=== PATIENT | female | born 1985 | race Caucasian/White ===

== ENCOUNTER 2017-01-20 09:43 | Emergency (ER) | payer BC, OTHER ==
[2017-01-20 09:57] VITALS: BP 129/84
--- NOTE | 2017-01-20 10:24 | UC ---
Throat Pain/Nasal Mendez HPI - HPI Summary HPI Summary: ST starting 3 days ago. Denies fever, vomiting, or rash. [place] a little nauseated and tired yesterday, but also stayed in the sun too long and got a sunburn. 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 Looked in her throat and saw white bump on R tonsil. - History of Current Complaint Chief Complaint: UCGeneralIllness Stated Complaint: SORE THROAT Time Seen by Provider: 01/20/17 10:06 Hx Obtained From: Patient Hx Last Menstrual Period: 01/06/17 ?: No Onset/Duration: Gradual Onset, Lasting Days Severity: Mild Cough: None Associated Signs & Symptoms: Negative: Fever, Vomiting, Rash - Allergies/Home Medications Allergies/Adverse Reactions: Allergies Allergy/AdvReac Type Severity Reaction Status Date / Time No Known Allergies Allergy Verified 01/20/17 09:57 Home Medications: Home Medications Acetaminophen [Acetaminophen Extra Stren] 1 tab PO Q4HR PRN 01/20/17 [History Confirmed 01/20/17] PMH/Surg Hx/FS Hx/Imm Hx Previously Healthy: Yes - Surgical History Surgical History: None - Family History Known Family History: Positive: Hypertension - father - Social History Alcohol Use: None Substance Use Type: None Smoking Status (MU): Heavy Every Day Tobacco Smoker Type: Cigarettes Amount Used/How Often: 1 PPD Have You Smoked in the Last Year: Yes Household Exposure Type: Cigarettes Cessation Counseling: Patient Advised to Stop Review of Systems Constitutional: Negative Skin: Negative Eyes: Negative ENT: Sore Throat Respiratory: Negative Cardiovascular: Negative Gastrointestinal: Negative Genitourinary: Negative Motor: Negative Neurovascular: Negative Musculoskeletal: Negative Neurological: Negative Psychological: Negative All Other Systems Reviewed And Are Negative: Yes Physical Exam Triage Information Reviewed: Yes Appearance: Well-Appearing, No Pain Distress, Well-Nourished Vital Signs: Initial Vital Signs Temp 99.2 F 01/20/17 09:51 Pulse 90 01/20/17 09:51 Resp 18 01/20/17 09:51 BP 129/84 01/20/17 09:51 Pulse Ox 100 01/20/17 09:51 Vital Signs Reviewed: Yes Eye Exam: Normal Eyes: Positive: Conjunctiva Clear ENT: Positive: Pharynx normal - approx 0.5cm diameter smooth, pearly papule on R tonsil. Negative: Pharyngeal erythema, Tonsillar swelling, Tonsillar exudate Dental Exam: Normal Dental: Negative: Dental Fracture @ Neck exam: Normal Neck: Positive: Supple, Nontender, No Lymphadenopathy Respiratory Exam: Normal Respiratory: Positive: Chest non-tender, Lungs clear, Normal breath sounds, No respiratory distress, No accessory muscle use Cardiovascular Exam: Normal Cardiovascular: Positive: RRR, No Murmur Musculoskeletal Exam: Normal Neurological Exam: Normal Neurological: Positive: Alert Psychological Exam: Normal Skin Exam: Other - sunburn on face and exposed skin of upper body, worst on forehead and forearms Throat Pain/Nasal Course/Dx - Differential Dx/Diagnosis Provider Diagnoses: pharyngitis, likely viral. elevated blood pressure due to disomfort Discharge - Discharge Plan Condition: Stable Disposition: HOME Patient Education Materials: Pharyngitis (ED) Referrals: [facility] REFERRAL [Outside] Additional Instructions: rapid strep negative. As we discussed, your symptoms are most likely viral and should resolve in the next week or so. If you have fever, trouble with breathing, or severe symptoms, please return here. The spot on your right tonsil should be observed over time to see if it is growing. Please follow up with a primary care provider for this. If you cannot get in with one, you can try contacting an ear, nose, and throat specialist ( there are offices in [facility] that you can call).
== END 2017-01-20 10:42 | disposition home or self-care (01) ==
LOC: UCEAST 09:43
DX: J02.9 Acute pharyngitis, unspecified (principal); R03.0 Elevated blood-pressure reading, without diagnosis of hypertension; F17.210 Nicotine dependence, cigarettes, uncomplicated
CPT/HCPCS: 87651; 99211; G0463

== ENCOUNTER 2017-05-25 18:30 | Emergency (ER) | payer BC, OTHER ==
[2017-05-25 19:02] VITALS: BP 128/85
--- NOTE | 2017-05-25 19:15 | UC ---
Throat Pain/Nasal Mendez HPI - HPI Summary HPI Summary: 31 YEAR OLD FEMALE PRESENTS WITH LESIONS IN MOUTH. - History of Current Complaint Chief Complaint: UCGeneralIllness Stated Complaint: LUMPS IN SORE THROAT Time Seen by Provider: 05/25/17 19:15 Hx Obtained From: Patient Hx Last Menstrual Period: now Onset/Duration: Sudden Onset Severity: Moderate Pain Scale Used: 0-10 Numeric - 0 Cough: Nonproductive Associated Signs & Symptoms: Positive: Negative - Allergies/Home Medications Allergies/Adverse Reactions: Allergies Allergy/AdvReac Type Severity Reaction Status Date / Time No Known Allergies Allergy Verified 05/25/17 19:02 PMH/Surg Hx/FS Hx/Imm Hx Previously Healthy: Yes - Surgical History Surgical History: None - Family History Known Family History: Positive: Hypertension - father - Social History Alcohol Use: Occasionally Substance Use Type: None Smoking Status (MU): Heavy Every Day Tobacco Smoker Type: Cigarettes Amount Used/How Often: 1 PPD Have You Smoked in the Last Year: Yes Household Exposure Type: Cigarettes Review of Systems Constitutional: Negative Skin: Negative Eyes: Negative ENT: Other - LESIONS ON THE RIGHT SIDE OF HIS MOUTH Respiratory: Negative Cardiovascular: Negative Gastrointestinal: Negative Genitourinary: Negative Motor: Negative Neurovascular: Negative Musculoskeletal: Negative Neurological: Negative Psychological: Negative All Other Systems Reviewed And Are Negative: Yes Physical Exam Triage Information Reviewed: Yes Vital Signs: Initial Vital Signs Temp 36.4 C 05/25/17 18:56 Pulse 70 05/25/17 18:56 Resp 17 05/25/17 18:56 BP 128/85 05/25/17 18:56 Pulse Ox 100 05/25/17 18:56 Vital Signs Reviewed: Yes Eye Exam: Normal ENT: Positive: Other: - LESIONS ON RIGHT SIDE OF MOUTH Dental Exam: Normal Neck exam: Normal Neck: Positive: 1 Respiratory Exam: Normal Cardiovascular Exam: Normal Abdominal Exam: Normal Musculoskeletal Exam: Normal Neurological Exam: Normal Psychological Exam: Normal Skin Exam: Normal Throat Pain/Nasal Course/Dx - Differential Dx/Diagnosis Provider Diagnoses: TONSILITHS ON RIGHT SIDE OF MOUTH Discharge - Discharge Plan Condition: Stable Disposition: HOME Patient Education Materials: Pharyngitis (ED) Forms: *Work Release Referrals: Caden Doran MD [Medical Doctor] - Caden Valdez MD [Primary Care Provider] -
== END 2017-05-25 20:17 | disposition home or self-care (01) ==
LOC: UCEAST 18:30
DX: J03.90 Acute tonsillitis, unspecified (principal); F17.210 Nicotine dependence, cigarettes, uncomplicated
CPT/HCPCS: 87070; 87651; 99211; G0463

== ENCOUNTER 2017-10-19 13:02 | Emergency (ER) | payer OTHER ==
[2017-10-19 13:56] VITALS: BP 114/75
--- NOTE | 2017-10-19 14:19 | UC ---
Ear Complaint HPI - HPI Summary HPI Summary: Pt presents with intermittent dizziness since yesterday. Worse with movement and head turning. When she rests for a few minutes the dizziness goes away and she feels better. She tells me that she also has some left ear pain and mild headache. She is most concerned about her work as she left work today due to these symptoms and is asking for a work note. She denies recent illness, sinus symptoms, sore throat, cough, SOB, chest pain, n/v/d/c, vision changes. - History of Current Complaint Chief Complaint: UCGeneralIllness Stated Complaint: DIZZY, EARACHE, HEADACHE, STOMACH ACHE Time Seen by Provider: 10/19/17 14:18 Hx Obtained From: Patient Hx Last Menstrual Period: 10/12/17 Severity Initially: Mild Severity Currently: Mild Pain Intensity: 4 Pain Scale Used: 0-10 Numeric - Allergies/Home Medications Allergies/Adverse Reactions: Allergies Allergy/AdvReac Type Severity Reaction Status Date / Time No Known Allergies Allergy Verified 10/19/17 13:49 PMH/Surg Hx/FS Hx/Imm Hx Previously Healthy: Yes - Surgical History Surgical History: None - Family History Known Family History: Positive: Hypertension - father - Social History Occupation: Employed Full-time Lives: With Family Alcohol Use: Occasionally Substance Use Type: None Smoking Status (MU): Heavy Every Day Tobacco Smoker Type: Cigarettes Amount Used/How Often: 1 PPD Have You Smoked in the Last Year: Yes Household Exposure Type: Cigarettes Review of Systems Constitutional: Negative Skin: Negative Eyes: Negative ENT: Ear Ache Respiratory: Negative Cardiovascular: Negative Gastrointestinal: Negative Neurovascular: Negative Musculoskeletal: Negative Neurological: Headache, Other - Dizziness Psychological: Negative All Other Systems Reviewed And Are Negative: Yes Physical Exam Triage Information Reviewed: Yes Appearance: Well-Appearing, No Pain Distress, Well-Nourished Vital Signs: Initial Vital Signs Temp 98.3 F 10/19/17 13:50 Pulse 66 10/19/17 13:50 Resp 16 10/19/17 13:50 BP 114/75 10/19/17 13:50 Pulse Ox 100 10/19/17 13:50 Vital Signs Reviewed: Yes Eyes: Positive: Conjunctiva Clear, Other: - EOMI. PERRLA. No nystagmus. Negative: Conjunctiva Inflamed, Discharge ENT: Positive: Hearing grossly normal, Pharynx normal, TMs normal, Uvula midline. Negative: Pharyngeal erythema, Nasal congestion, Nasal drainage, TM bulging, TM dull, TM red, Tonsillar swelling, Tonsillar exudate, Hoarse voice, Sinus tenderness Neck: Positive: Supple, Nontender, No Lymphadenopathy Respiratory: Positive: Lungs clear, Normal breath sounds, No respiratory distress, No accessory muscle use Cardiovascular: Positive: RRR, No Murmur, Pulses Normal Abdomen Description: Positive: Nontender, No Organomegaly, Soft. Negative: Distended, Guarding Bowel Sounds: Positive: Present Musculoskeletal: Positive: Strength Intact - B/L UEs and LEs, ROM Intact - B/L UEs and LEs Neurological: Positive: Alert, Other: - A&Ox3. 3 word recall, remote, recent memory, ability to follow 2-step directions, and attention intact. CN II XII grossly intact. [id number] are intact. Gait with normal base. Romberg: maintains balance, no pronator drift. Normal speech. No facial drooping. Psychological: Positive: Age Appropriate Behavior Skin: Negative: rashes Ear Complaint Course/Dx - Course Course Of Treatment: [place] hallpike maneuver reproduced dizziness. Will rx for meclizine and advise her to f/u if symptoms do not improve or if she develops new symptoms. - Differential Dx/Diagnosis Provider Diagnoses: BPPV Discharge - Discharge Plan Condition: Stable Disposition: HOME Prescriptions: Meclizine TAB* [Antivert 12.5 TAB*] 25 mg PO BID PRN #10 tab PRN Reason: Dizziness Patient Education Materials: Viral Syndrome (ED) Forms: *Work Release Referrals: No Primary Care Phys,NOPCP [Primary Care Provider] - Additional Instructions: If you develop a fever, shortness of breath, chest pain, new or worsening symptoms - please call your PCP or go to the ED.
== END 2017-10-19 14:32 | disposition home or self-care (01) ==
LOC: UCEAST 13:02
DX: H81.10 Benign paroxysmal vertigo, unspecified ear (principal); F17.210 Nicotine dependence, cigarettes, uncomplicated
CPT/HCPCS: 99212; G0463

== ENCOUNTER 2018-01-25 13:42 | Emergency (ER) | payer OTHER ==
[2018-01-25 13:54] VITALS: BP 129/84
--- NOTE | 2018-01-25 19:59 | UC ---
Jen Tillman Rebecca, scribed for Malik Majano MD on 01/25/18 at 1504 . Back Pain HPI - HPI Summary HPI Summary: Pt is a 32 y/o F who presents to [facility] c/o back pain. Pain has been present for 5-6 days and is located "next to my spine" on the right side. Currently moderate, ranked 6/10 and characterized as an ache. Reports that the pain is worse some mornings, depending on how she sleeps and that she is able to find certain positions that are less painful. Sx aggravated by movement, especially turning and stretching, alleviated slightly by Ibuprofen which helps temporarily. Denies any other symptoms including dysuria, hematuria, fever, chills, abd pain, neck pain, and LE pain/weakness. Works in a warehouse, doing significantly bending and stretching. Negative PMHx kidney stones and back problems, and no PSHx. - History of Current Complaint Chief Complaint: UCBackPain Stated Complaint: BACK PAIN Time Seen by Provider: 01/25/18 14:55 Hx Obtained From: Patient Hx Last Menstrual Period: 10/12/17 Onset/Duration: Lasting Days - 5-6 days, Still Present Severity Currently: Moderate Pain Intensity: 6 Pain Scale Used: 0-10 Numeric Back Pain: Is Discrete @ - To the right side of the spine Character: Aching Aggravating Factor(s): Movement - Stretching and turning Alleviating Factor(s): OTC Meds - Ibuprofen - slightly/temporarily Associated Signs And Symptoms: Positive: Negative. Negative: Fever, Abdominal Pain - Allergies/Home Medications Allergies/Adverse Reactions: Allergies Allergy/AdvReac Type Severity Reaction Status Date / Time No Known Allergies Allergy Verified 01/25/18 13:55 Home Medications: Home Medications Ibuprofen [Goodsense Ibuprofen] 600 mg PO 01/25/18 [History] Norgestimate-Ethinyl Estradiol [Ortho-Cyclen 28 Tablet] 1 tab 01/25/18 [History] PMH/Surg Hx/FS Hx/Imm Hx - Additional Past Medical History Additional PMH: NEGATIVE PMHx: kidney stones, back problems, HTN, DM, asthma - Surgical History Surgical History: None - Family History Known Family History: Positive: Hypertension - father - Social History Alcohol Use: Rare Substance Use Type: None Smoking Status (MU): Heavy Every Day Tobacco Smoker Type: Cigarettes Amount Used/How Often: 1 PPD Have You Smoked in the Last Year: Yes Household Exposure Type: Cigarettes Review of Systems Constitutional: Negative Skin: Negative Eyes: Negative ENT: Negative Respiratory: Negative Cardiovascular: Negative Gastrointestinal: Negative Genitourinary: Negative Motor: Negative Neurovascular: Negative Musculoskeletal: Other: - Right-sided back pain Neurological: Negative Psychological: Negative All Other Systems Reviewed And Are Negative: Yes - Comments Additional Review of Systems Comments: NEGATIVE: Dysuria, hematuria, fever, chills, abd pain, neck pain, and LE pain/ weakness Physical Exam - Summary Physical Exam Summary: General: well-appearing, no pain distress Skin: warm, color reflects adequate perfusion, dry Head: normal Eyes: EOMI, REA ENT: normal Neck: supple, nontender Respiratory: CTA, breath sounds present Cardiovascular: RRR Abdomen: soft, nontender Bowel: present Musculoskeletal: strength/ROM intact, tender in the right paraspinous lumbar muscles Neurological: sensory/motor intact, A&O x3 Psychological: affect/mood appropriate Triage Information Reviewed: Yes Vital Signs: Initial Vital Signs Temp 98.2 F 01/25/18 13:51 Pulse 72 01/25/18 13:51 Resp 18 01/25/18 13:51 BP 129/84 01/25/18 13:51 Pulse Ox 99 01/25/18 13:51 Vital Signs Reviewed: Yes Back Pain Course/Dx - Differential Dx/Diagnosis Provider Diagnoses: LOW BACK PAIN Discharge - Sign-Out/Discharge Documenting (check all that apply): Discharge/Admit/Transfer - Discharge - Discharge Plan Condition: Stable Disposition: HOME Prescriptions: Cyclobenzaprine TAB* [Flexeril 10 MG TAB*] 10 mg PO TID PRN #15 tab MDD 3 PRN Reason: Pain Patient Education Materials: Low Back Strain (ED), Acute Low Back Pain (ED), Core Strengthening Exercises (GEN) Forms: *Work Release Referrals: [facility] [place] [facility] [Outside] - Billing Disposition and Condition Condition: STABLE Disposition: HOME The documentation as recorded by the Jen motley Rebecca accurately reflects the service I personally performed and the decisions made by me, Malik Majano MD.
== END 2018-01-25 15:28 | disposition home or self-care (01) ==
LOC: UCEAST 13:42
DX: M54.5 Low back pain (principal); F17.210 Nicotine dependence, cigarettes, uncomplicated
CPT/HCPCS: 99212; G0463

== ENCOUNTER 2018-04-18 09:14 | Emergency (ER) | payer OTHER ==
[2018-04-18 09:23] VITALS: BP 115/73
--- NOTE | 2018-04-18 09:52 | UC ---
Skin Complaint HPI - HPI Summary HPI Summary: 32 yo female presents with bug bites. She tells me that 2 days ago she [place] The next day noticed bug bites to her right shoulder that are itchy. This morning woke up and noticed more on her shoulder, but also some on her left side and upper legs. Her partner also has some, but not as much as her. She was outside a lot, but denies being in contact with any plant life. Denies fever or chills. Has not applied any creams. - History of Current Complaint Chief Complaint: UCSkin Time Seen by Provider: 04/18/18 09:52 Stated Complaint: RASH Hx Obtained From: Patient Hx Last Menstrual Period: 03/19/18 Onset/Duration: Sudden Onset Current Severity: None Pain Intensity: 0 - Allergy/Home Medications Allergies/Adverse Reactions: Allergies Allergy/AdvReac Type Severity Reaction Status Date / Time No Known Allergies Allergy Verified 04/18/18 09:23 Review of Systems Constitutional: Negative Skin: Other - Bug bites Respiratory: Negative Cardiovascular: Negative Neurovascular: Negative Neurological: Negative Psychological: Negative All Other Systems Reviewed And Are Negative: Yes PMH/Surg Hx/FS Hx/Imm Hx - Additional Past Medical History Additional PMH: None Previously Healthy: Yes - Surgical History Surgical History: None - Family History Known Family History: Positive: Hypertension - father - Social History Occupation: Employed Full-time Lives: With Family Alcohol Use: Rare Substance Use Type: None Smoking Status (MU): Heavy Every Day Tobacco Smoker Type: Cigarettes Amount Used/How Often: 1 PPD Have You Smoked in the Last Year: Yes Household Exposure Type: Cigarettes Physical Exam - Summary Physical Exam Summary: GENERAL: NAD. WDWN. No pain distress. SKIN: Scattered 2-3mm mildly erythematous and raised bug bites to right shoulder , left side, and upper legs. No streaking, bleeding, or drainage. NECK: Supple. Nontender. No lymphadenopathy. CHEST: No accessory muscle use. Breathing comfortably and in no distress. CV: Pulses intact NEURO: Alert. CN II-XII grossly intact. PSYCH: Age appropriate behavior. Triage Information Reviewed: Yes Vital Signs: Initial Vital Signs Temp 97.7 F 04/18/18 09:19 Pulse 60 04/18/18 09:19 Resp 16 04/18/18 09:19 BP 115/73 04/18/18 09:19 Pulse Ox 100 04/18/18 09:19 Vital Signs Reviewed: Yes Course/Dx - Course Course Of Treatment: Suspect bed bugs - Diagnoses Provider Diagnoses: Bed bugs Discharge - Sign-Out/Discharge Documenting (check all that apply): Patient Departure - Discharge Plan Condition: Stable Disposition: HOME Prescriptions: Hydrocortisone 1% CREAM* [Hytone Cream 1%*] 1 applic TOPICAL BID #1 tube Patient Education Materials: Bed Bugs (ED) Forms: *Work Release Referrals: No Primary Care Phys,NOPCP [Primary Care Provider] - Additional Instructions: If you develop a fever, shortness of breath, chest pain, new or worsening symptoms - please call your PCP or go to the ED. - Billing Disposition and Condition Condition: STABLE Disposition: Home
== END 2018-04-18 10:34 | disposition home or self-care (01) ==
LOC: UCEAST 09:14
DX: S40.261A Insect bite (nonvenomous) of right shoulder, initial encounter (principal); S70.362A Insect bite (nonvenomous), left thigh, initial encounter; S70.361A Insect bite (nonvenomous), right thigh, initial encounter; W57.XXXA Bitten or stung by nonvenomous insect and other nonvenomous arthropods, initial encounter; Y93.9 Activity, unspecified; Y92.009 Unspecified place in unspecified non-institutional (private) residence as the place of occurrence of the external cause; F17.210 Nicotine dependence, cigarettes, uncomplicated
CPT/HCPCS: 99212; G0463

== ENCOUNTER 2018-04-24 14:42 | Emergency (ER) | payer SELFPAY ==
[2018-04-24 14:54] VITALS: BP 142/92
--- NOTE | 2018-04-24 16:38 | UC ---
Lower Extremity/Ankle HPI - HPI Summary HPI Summary: The patient is a 32 y/o F presenting to [facility] c/o pain in the left ankle and foot s/p falling off of a pallet at work today at 1020. She was standing on a 4- foot pallet while carrying a bag of bananas when she fell. She isn't sure how she fell, but she is now experiencing pain in her left foot and ankle which is rated 9/10 in severity. She presented to in a wheelchair today because she has limited ROM in the ankle, and standing, ambulation, and movement worsens the pain. She denies hitting her head and neck, LOC. - History of Current Complaint Chief Complaint: UCLowerExtremity Stated Complaint: ANKLE INJURY Time Seen by Provider: 04/24/18 16:27 Hx Obtained From: Patient Hx Last Menstrual Period: 3 wks ago Onset/Duration: Sudden Onset, Lasting Hours, Still Present Severity Initially: Severe Severity Currently: Severe Pain Intensity: 9 Pain Scale Used: 0-10 Numeric Aggravating Factor(s): Standing, Ambulation, Other - movement Alleviating Factor(s): Rest Able to Bear Weight: No - presents to in wheelchair Feet (Multiple View): 1 - pain in left ankle and foot - Allergies/Home Medications Allergies/Adverse Reactions: Allergies Allergy/AdvReac Type Severity Reaction Status Date / Time No Known Allergies Allergy Verified 04/24/18 14:54 PMH/Surg Hx/FS Hx/Imm Hx Other Endocrine History: NEGATIVE: diabetes, HLD Other Cardiovascular History: NEGATIVE: HTN Other Respiratory History: NEGATIVE: asthma - Surgical History Surgical History: None - Family History Known Family History: Positive: Hypertension - father - Social History Alcohol Use: Rare Substance Use Type: None Smoking Status (MU): Heavy Every Day Tobacco Smoker Type: Cigarettes Amount Used/How Often: 1 PPD Have You Smoked in the Last Year: Yes Household Exposure Type: Cigarettes Review of Systems Musculoskeletal: Other: - POSITIVE: pain in left ankle and foot; NEGATIVE: pain in head or neck Neurological: Other All Other Systems Reviewed And Are Negative: Yes Physical Exam - Summary Physical Exam Summary: VITAL SIGNS: Reviewed. GENERAL: Patient is a well-developed and nourished female who is lying comfortable in the stretcher. Patient is not in any acute respiratory distress. HEAD AND FACE: Normocephalic EYES: PERRLA, EOMI x 2. EARS: Hearing grossly intact. MOUTH: Oropharynx within normal limits. NECK: Supple, trachea is midline, no adenopathy, no JVD, no carotid bruit. CHEST: Symmetric, no tenderness at palpation LUNGS: Clear to auscultation bilaterally. No wheezing or crackles. CVS: Regular rate and rhythm, S1 and S2 present, no murmurs or gallops appreciated. ABDOMEN: Soft, non-tender. Bowel sounds are normal. No abdominal abnormal pulsations. EXTREMITIES: Full ROM in all major joints with limited ROM in the left ankle and foot, no edema, no cyanosis or clubbing, no ecchymosis, no hematoma, good pulses, good neurovascular exam, intact. NEURO: Alert and oriented x 3. No acute neurological deficits. Speech is normal and follows commands. SKIN: Dry and warm. Triage Information Reviewed: Yes Vital Signs: Initial Vital Signs Temp 97.6 F 04/24/18 14:51 Pulse 84 04/24/18 14:51 Resp 18 04/24/18 14:51 BP 142/92 04/24/18 14:51 Pulse Ox 100 04/24/18 14:51 Vital Signs Reviewed: Yes Diagnostics - Radiology Foot XR Xray Interpretation: No Acute Changes - No fracture of the left foot is noted. [facility] physician has reviewed this report. Radiology Interpretation Completed By: Radiologist Left Ankle XR Xray Interpretation: No Acute Changes - No fracture of the left ankle is noted. [facility] physician has reviewed this report. Radiology Interpretation Completed By: Radiologist Lower Extremity Course/Dx - Course Course Of Treatment: The patient was found to have increased BP in UC. The patient will follow up with PCP for better control of BP. . Patient is a 32-year-old female presents to the urgent care with a chief complaint of left ankle and foot pain. X-rays of the left ankle and left foot impressions by radiologist reveal no acute fracture or dislocation. Patient was placed in the gel ankle brace. Patient will be discharged home with follow-up with PCP. Patient instructed to return to the urgent if she develops any worsening symptoms. She was given an excuse for work. - Differential Dx/Diagnosis Provider Diagnoses: Ankle sprain Discharge - Sign-Out/Discharge Documenting (check all that apply): Patient Departure - Patient will be discharged home. All imaging exams completed and their final reports reviewed: Yes - Discharge Plan Condition: Stable Disposition: HOME Prescriptions: Naproxen [Naproxen 500 mg tab] 500 mg PO BID PRN #20 tablet PRN Reason: Pain Patient Education Materials: Ankle Sprain (ED) Forms: *Work Release Referrals: [facility] [place] [facility] REFERRAL [Outside] - 3 Days Additional Instructions: FOLLOW UP WITH YOUR PRIMARY CARE PROVIDER WITHIN ONE WEEK FOR HIGH BLOOD PRESSURE NOTED TODAY. RETURN TO URGENT CARE OR THE EMERGENCY DEPARTMENT FOR ANY WORSENING OR NEW SYMPTOMS. Take medications as instructed and adhere to plan Take Acetaminophen or ibuprofen for pain or fever Increase your fluid intake Return to the UC or go to the emergency department if symptoms worsen Follow-up with primary care physician in next 2-3 days - Billing Disposition and Condition Condition: STABLE Disposition: Home - Attestation Statements Document Initiated by Ryan: Yes Documenting Scribe: Sara Salinas Provider For Whom Ryan is Documenting (Include Credential): Huy Adams MD Scribe Attestation: Sara Tillman scribed for Huy Adams MD on 04/26/18 at 0734. Scribe Documentation Reviewed: Yes Provider Attestation: The documentation as recorded by the Sara motley accurately reflects the service I personally performed and the decisions made by me, Huy Adams MD
--- NOTE | 2018-04-24 16:55 | RAD ---
Indication: Left ankle pain. 3 views of left ankle demonstrates no fracture. No other bone or joint abnormality is noted. IMPRESSION: No fracture of the left ankle is noted.
--- NOTE | 2018-04-24 16:56 | RAD ---
Indication: Left foot pain. 3 views of left foot demonstrates no fracture. No other bone or joint abnormality is identified. IMPRESSION: No fracture of the left foot is noted.
[2018-04-24] MEDS ORDERED: Ibuprofen TAB* 400 MG PO ONE (16:59)
--- NOTE | 2018-04-25 10:59 | UC ---
- Progress Note Progress Note: Patient Name: MICHAEL MCINTYRE Medical Record#: [id number] Ordering Physician: Qing ZAMORA Acct.#: [id number] : 1985 Age: 32 Sex: F Location: [facility] Exam Date: 04/24/18 1452 ADM Status: REG ER Order Information: FOOT LEFT 3+ VWS Accession Number: [id number] CPT: 07026 Indication: Left foot pain. 3 views of left foot demonstrates no fracture. No other bone or joint abnormality is identified. IMPRESSION: No fracture of the left foot is noted. <Electronically signed by Kateryna Gunn MD in OV> 04/24/181652 Dictated By: Kateryna Gunn MD Dictated Date/Time: 04/24/181652 Transcribed Date/Time: 04/24/181651 Copy to: CC:Qing ZAMORA; No Primary Care Phys,NOPCP; Huy Adams MD Imaging - [facility] Imaging [facility] [place] [address] [address] ph [phone]) ph ([phone]) ph ([phone]) This report is only to be considered final once signed by the Provider(s) as displayed in the "<Electronically Signed by >" field (s). Absence of a signature indicates the report is in a draft status and still needs to be finalized. In the event this document was created by someone other than the signing Provider, the individual initiating the document will be listed in the "Entered by:" or "Dictated by:" mendosa. 1 of 1 Patient Name: MICHAEL MCINTYRE Medical Record#: [id number] Ordering Physician: Qing ZAMORA Acct.#: [id number] : 1985 Age: 32 Sex: F Location: [facility] Exam Date: 04/24/18 1451 ADM Status: REG ER Order Information: ANKLE LEFT 3+VWS Accession Number: [id number] CPT: 81461 Indication: Left ankle pain. 3 views of left ankle demonstrates no fracture. No other bone or joint abnormality is noted. IMPRESSION: No fracture of the left ankle is noted. <Electronically signed by Kateryna Gunn MD in OV> 04/24/181651 Dictated By: Kateryna Gunn MD Dictated Date/Time: 04/24/181651 Transcribed Date/Time: 04/24/181651 Copy to: CC:Qing ZAMORA; No Primary Care Phys,NOPCP; Huy Adams MD [facility] - [facility] [address] [address] ph ([phone]) ph ([phone]) ph ([phone]) This report is only to be considered final once signed by the Provider(s) as displayed in the "<Electronically Signed by >" field (s). Absence of a signature indicates the report is in a draft status and still needs to be finalized. In the event this document was created by someone other than the signing Provider, the individual initiating the document will be listed in the "Entered by:" or "Dictated by:" mendosa. 1 of 1 Discharge - Sign-Out/Discharge Documenting (check all that apply): Post-Discharge Follow Up All imaging exams completed and their final reports reviewed: Yes - Discharge Plan Condition: Stable Disposition: HOME Prescriptions: Naproxen [Naproxen 500 mg tab] 500 mg PO BID PRN #20 tablet PRN Reason: Pain Patient Education Materials: Ankle Sprain (ED) Forms: *Work Release Referrals: [facility]IAN REFERRAL [Outside] - 3 Days Additional Instructions: FOLLOW UP WITH YOUR PRIMARY CARE PROVIDER WITHIN ONE WEEK FOR HIGH BLOOD PRESSURE NOTED TODAY. RETURN TO URGENT CARE OR THE EMERGENCY DEPARTMENT FOR ANY WORSENING OR NEW SYMPTOMS. Take medications as instructed and adhere to plan Take Acetaminophen or ibuprofen for pain or fever Increase your fluid intake Return to the or go to the emergency department if symptoms worsen Follow-up with primary care physician in next 2-3 days - Billing Disposition and Condition Condition: STABLE Disposition: Home
== END 2018-04-24 17:05 | disposition home or self-care (01) ==
LOC: UCEAST 14:42
DX: S93.402A Sprain of unspecified ligament of left ankle, initial encounter (principal); W17.89XA Other fall from one level to another, initial encounter; Y93.9 Activity, unspecified; Y92.89 Other specified places as the place of occurrence of the external cause; Y99.0 Civilian activity done for income or pay; F17.210 Nicotine dependence, cigarettes, uncomplicated
CPT/HCPCS: 99213; A9270-GY; G0463

== ENCOUNTER 2019-04-18 21:23 | Emergency (ER) | payer OTHER ==
[2019-04-18 21:40] VITALS: BP 140/73
--- NOTE | 2019-04-18 21:40 | UC ---
Lower Extremity/Ankle HPI - HPI Summary HPI Summary: Patient was running to a base, felt a pop and has had pain in the under side of the lateral foot, this pain has been presnet for about a month onlg the latereal side of the ankle and foot, but since her softball game today it is worse. no swelling noted, no bruising, patient was brought in via wheelchair - History of Current Complaint Stated Complaint: RIGHT ANKLEL INJURY Time Seen by Provider: 04/18/19 21:33 Hx Obtained From: Patient Hx Last Menstrual Period: 3 wks ago ?: No Onset/Duration: Sudden Onset, Lasting Hours Severity Initially: Moderate Severity Currently: Moderate Aggravating Factor(s): Standing, Ambulation Alleviating Factor(s): Rest Able to Bear Weight: No - Allergies/Home Medications Allergies/Adverse Reactions: Allergies Allergy/AdvReac Type Severity Reaction Status Date / Time No Known Allergies Allergy Verified 04/18/19 21:40 Home Medications: Home Medications Norgestimate-Ethinyl Estradiol [Sprintec 28 Day Tablet] 1 each PO DAILY [History Confirmed 04/18/19] PMH/Surg Hx/FS Hx/Imm Hx Previously Healthy: Yes - Surgical History Surgical History: None - Family History Known Family History: Positive: Hypertension - father - Social History Alcohol Use: Rare Substance Use Type: None Smoking Status (MU): Heavy Every Day Tobacco Smoker Type: Cigarettes Amount Used/How Often: 1 PPD Have You Smoked in the Last Year: Yes Household Exposure Type: Cigarettes Review of Systems All Other Systems Reviewed And Are Negative: Yes Musculoskeletal: Positive: Arthralgia, Decreased ROM, Myalgia Is Patient Immunocompromised?: No Physical Exam Triage Information Reviewed: Yes Appearance: Well-Appearing, Pain Distress, Obese Vital Signs Reviewed: Yes Eye Exam: Normal ENT Exam: Normal Dental Exam: Normal Neck exam: Normal Respiratory Exam: Normal Respiratory: Positive: Chest non-tender, Lungs clear, Normal breath sounds Cardiovascular Exam: Normal Cardiovascular: Positive: RRR, No Murmur Abdominal Exam: Normal Musculoskeletal: Positive: No Edema, Strength Limited @ - cannot bear wieght, ROM Limited @ - with eversion and Plantar and dorsi flexion Neurological Exam: Normal Psychological Exam: Normal Skin Exam: Normal Lower Extremity Course/Dx - Course Course Of Treatment: hx obtained, exam performed ,meds reviewed, xray obtained and is negative, crutches and education on care given. - Differential Dx/Diagnosis Differential Diagnosis/HQI/PQRI: Contusion, Fracture (Closed), Sprain, Strain Provider Diagnosis: Peroneal tendinitis, right leg Discharge - Sign-Out/Discharge Documenting (check all that apply): Patient Departure All imaging exams completed and their final reports reviewed: No Studies - Discharge Plan Condition: Stable Disposition: HOME Patient Education Materials: Tendinitis (ED) Referrals: No Primary Care Phys,NOPCP [Primary Care Provider] - Additional Instructions: 1. Use the crutches to rest the foot for the next 48 hours 2. Take ibuprofen 400- 600 mg every 4-6 hours for the next w days 3. warm water baths for the foot and ankle 2 times a day 4. elevate at rest 5. Start gentle stretching of the lower leg and work back into activity 6. if not improving in the next week follow up with orthopedics for further evaluation - Billing Disposition and Condition Condition: STABLE Disposition: Home
--- NOTE | 2019-04-18 22:14 | UC ---
Course/Dx - Diagnoses Provider Diagnoses: Peroneal tendinitis, right leg Discharge - Sign-Out/Discharge Documenting (check all that apply): Patient Departure All imaging exams completed and their final reports reviewed: No - Discharge Plan Condition: Stable Disposition: HOME Patient Education Materials: Tendinitis (ED) Forms: *Work Release Referrals: No Primary Care Phys,NOPCP [Primary Care Provider] - Additional Instructions: 1. Use the crutches to rest the foot for the next 48 hours 2. Take ibuprofen 400- 600 mg every 4-6 hours for the next w days 3. warm water baths for the foot and ankle 2 times a day 4. elevate at rest 5. Start gentle stretching of the lower leg and work back into activity 6. if not improving in the next week follow up with orthopedics for further evaluation - Billing Disposition and Condition Condition: STABLE Disposition: Home
--- NOTE | 2019-04-19 07:55 | UC ---
- Progress Note Progress Note: Confirmed that not fracture or signficant findings on xray. No changes indicated. Course/Dx - Diagnoses Provider Diagnoses: Peroneal tendinitis, right leg Discharge - Sign-Out/Discharge Documenting (check all that apply): Patient Departure All imaging exams completed and their final reports reviewed: Yes - Discharge Plan Condition: Stable Disposition: HOME Patient Education Materials: Tendinitis (ED) Forms: *Work Release Referrals: No Primary Care Phys,NOPCP [Primary Care Provider] - Additional Instructions: 1. Use the crutches to rest the foot for the next 48 hours 2. Take ibuprofen 400- 600 mg every 4-6 hours for the next w days 3. warm water baths for the foot and ankle 2 times a day 4. elevate at rest 5. Start gentle stretching of the lower leg and work back into activity 6. if not improving in the next week follow up with orthopedics for further evaluation - Billing Disposition and Condition Condition: STABLE Disposition: Home
== END 2019-04-18 22:01 | disposition home or self-care (01) ==
LOC: UCCORT 21:23
DX: M76.71 Peroneal tendinitis, right leg (principal); F17.210 Nicotine dependence, cigarettes, uncomplicated
CPT/HCPCS: 99212; G0463

== ENCOUNTER 2019-07-08 12:58 | Emergency (ER) | payer OTHER ==
[2019-07-08 13:16] VITALS: BP 142/87
--- NOTE | 2019-07-08 13:25 | UC ---
Throat Pain/Nasal Mendez HPI - HPI Summary HPI Summary: left lower gum pain and swelling x 2-3 days no fever has to have no chew foods due to pain - History of Current Complaint Chief Complaint: UCRespiratory Stated Complaint: SORE THROAT Time Seen by Provider: 07/08/19 13:19 Hx Obtained From: Patient Hx Last Menstrual Period: 3 weeks ago Onset/Duration: Sudden Onset Severity: Mild Pain Intensity: 4 Pain Scale Used: 0-10 Numeric Cough: None Associated Signs & Symptoms: Positive: Fever - Epiglottits Risk Factors Epiglottis Risk Factors: Negative - Allergies/Home Medications Allergies/Adverse Reactions: Allergies Allergy/AdvReac Type Severity Reaction Status Date / Time No Known Allergies Allergy Verified 07/08/19 13:16 PMH/Surg Hx/FS Hx/Imm Hx Previously Healthy: Yes - Surgical History Surgical History: None - Family History Known Family History: Positive: Hypertension - father, Non-Contributory - Social History Alcohol Use: None Substance Use Type: None Smoking Status (MU): Current Every Day Smoker Type: Cigarettes Amount Used/How Often: 1 PPD Have You Smoked in the Last Year: Yes Household Exposure Type: Cigarettes Review of Systems All Other Systems Reviewed And Are Negative: Yes Constitutional: Positive: Negative Skin: Positive: Negative Eyes: Positive: Negative ENT: Positive: Dental Pain Respiratory: Positive: Negative Cardiovascular: Positive: Negative Gastrointestinal: Positive: Negative Genitourinary: Positive: Negative Motor: Positive: Negative Neurovascular: Positive: Negative Musculoskeletal: Positive: Negative Neurological: Positive: Negative Psychological: Positive: Negative Physical Exam Triage Information Reviewed: Yes Appearance: Well-Appearing, No Pain Distress, Well-Nourished Vital Signs: Initial Vital Signs Temp 97.8 F 07/08/19 13:13 Pulse 71 07/08/19 13:13 Resp 16 07/08/19 13:13 BP 142/87 07/08/19 13:13 Pulse Ox 100 07/08/19 13:13 Vital Signs Reviewed: Yes Eyes: Positive: Conjunctiva Clear ENT: Positive: Hearing grossly normal, Uvula midline. Negative: Nasal congestion, Nasal drainage, Tonsillar swelling, Tonsillar exudate Dental Exam: Other - see image Neck: Positive: Supple, Nontender, No Lymphadenopathy Respiratory: Positive: Lungs clear, Normal breath sounds, No respiratory distress Cardiovascular: Positive: RRR, No Murmur Musculoskeletal: Positive: ROM Intact, No Edema Neurological: Positive: Alert Psychological Exam: Normal Skin Exam: Normal Images Dental: 1 - gum red and inflamed with debris under it Throat Pain/Nasal Course/Dx - Differential Dx/Diagnosis Provider Diagnosis: Acute pericoronitis Discharge ED - Sign-Out/Discharge Documenting (check all that apply): Patient Departure All imaging exams completed and their final reports reviewed: No Studies - Discharge Plan Condition: Stable Disposition: HOME Prescriptions: Penicillin VK 500 MG TAB(NF) [Penicillin VK 500 mg Tab] 500 mg PO QID #28 tab Patient Education Materials: Toothache (ED) Referrals: No Primary Care Phys,NOPCP [Primary Care Provider] - [facility] PHYS[facility]IAN REFERRAL [Outside] - 2 Weeks (BP a little elevated here. Needs rechecking in 1-4 mos) Additional Instructions: warm salt water gargles 4x day advil or aleve the gum overlying your left lower molar is overgrown/inflamed and infected See a dentist this week advil or aleve - Billing Disposition and Condition Condition: STABLE Disposition: Home
== END 2019-07-08 13:30 | disposition home or self-care (01) ==
LOC: UCEAST 12:58
DX: K05.20 Aggressive periodontitis, unspecified (principal); F17.210 Nicotine dependence, cigarettes, uncomplicated
CPT/HCPCS: 99212; G0463

== ENCOUNTER 2019-08-15 07:04 | Emergency (ER) | payer OTHER ==
[2019-08-15 07:19] VITALS: BP 121/78
--- NOTE | 2019-08-15 07:26 | UC ---
Complaint Female HPI - HPI Summary HPI Summary: dysuria x 2 days + frequency , urgency , denies any hematuria no fever, no chill, no flank pain - History Of Current Complaint Chief Complaint: UCGU Stated Complaint: UTI Time Seen by Provider: 08/15/19 07:11 Hx Obtained From: Patient Hx Last Menstrual Period: 08/14/19 Onset/Duration: Gradual Onset, Lasting Days - 2, Still Present Timing: Constant Severity Initially: Moderate Severity Currently: Moderate Pain Intensity: 0 Character: Burning Aggravating Factor(s): Urination Alleviating Factor(s): Nothing Associated Signs And Symptoms: Negative: Fever, Back Pain, Vaginal Bleeding/ Discharge, Vaginal Discharge, Nausea, Vomiting(# Of Episodes =), Genital Swelling, Genital Blisters, Retained Foregin Body (Specify) - Allergies/Home Medications Allergies/Adverse Reactions: Allergies Allergy/AdvReac Type Severity Reaction Status Date / Time No Known Allergies Allergy Verified 08/15/19 07:13 PMH/Surg Hx/FS Hx/Imm Hx Previously Healthy: Yes - Surgical History Surgical History: None - Family History Known Family History: Positive: Hypertension - father, Non-Contributory - Social History Alcohol Use: None Substance Use Type: None Smoking Status (MU): Heavy Every Day Tobacco Smoker Type: Cigarettes Amount Used/How Often: 1 PPD Length of Time of Smoking/Using Tobacco: Since Age 16 Have You Smoked in the Last Year: Yes Household Exposure Type: Cigarettes Review of Systems All Other Systems Reviewed And Are Negative: Yes Genitourinary: Positive: Dysuria, Frequency, Urgency. Negative: Hematuria, Vaginal/Penile Burning, Vaginal/Penile Itching, Vaginal/Penile Discharge, Vaginal/Penile Pain, Vaginal/Penile Tenderness, Ulceration/Lesion Is Patient Immunocompromised?: No Physical Exam Triage Information Reviewed: Yes Appearance: Well-Appearing, No Pain Distress, Well-Nourished Vital Signs: Initial Vital Signs Temp 98.5 F 08/15/19 07:11 Pulse 72 08/15/19 07:11 Resp 16 08/15/19 07:11 BP 121/78 08/15/19 07:11 Pulse Ox 100 08/15/19 07:11 Vital Signs Reviewed: Yes Eye Exam: Normal Eyes: Positive: Conjunctiva Clear ENT: Positive: Normal ENT inspection, Hearing grossly normal, Pharynx normal Neck: Positive: Supple Respiratory: Positive: Chest non-tender, Lungs clear, Normal breath sounds Cardiovascular: Positive: RRR, No Murmur, Pulses Normal Abdomen Description: Positive: Nontender, Soft. Negative: CVA Tenderness (R), CVA Tenderness (L), Distended, Guarding Bowel Sounds: Positive: Present Skin Exam: Normal Complaint Female Dx - Differential Dx/Diagnosis Provider Diagnosis: UTI (urinary tract infection) Discharge ED - Sign-Out/Discharge Documenting (check all that apply): Patient Departure All imaging exams completed and their final reports reviewed: No Studies - Discharge Plan Condition: Stable Disposition: HOME Prescriptions: Phenazopyridine 200 mg (NF) [Pyridium 200 MG tab *] 200 mg PO TID #6 tab Sulfamethox/Trimethoprim DS* [Bactrim DS 800/160 TAB*] 1 tab PO BID #10 tab Patient Education Materials: Urinary Tract Infection in Women (DC) Referrals: No Primary Care Phys,NOPCP [Primary Care Provider] - If Needed - Billing Disposition and Condition Condition: STABLE Disposition: Home
--- NOTE | 2019-08-18 10:18 | UC ---
- Progress Note Progress Note: + E. coli sensitive to bactrim no change rudij 08/18/19 Course/Dx - Diagnoses Provider Diagnoses: UTI (urinary tract infection) Discharge ED - Sign-Out/Discharge Documenting (check all that apply): Post-Discharge Follow Up All imaging exams completed and their final reports reviewed: No Studies - Discharge Plan Condition: Stable Disposition: HOME Prescriptions: Phenazopyridine 200 mg (NF) [Pyridium 200 MG tab *] 200 mg PO TID #6 tab Sulfamethox/Trimethoprim DS* [Bactrim DS 800/160 TAB*] 1 tab PO BID #10 tab Patient Education Materials: Urinary Tract Infection in Women (DC) Referrals: No Primary Care Phys,NOPCP [Primary Care Provider] - If Needed - Billing Disposition and Condition Condition: STABLE Disposition: Home
== END 2019-08-15 07:35 | disposition home or self-care (01) ==
LOC: UCCORT 07:04
DX: N39.0 Urinary tract infection, site not specified (principal); F17.210 Nicotine dependence, cigarettes, uncomplicated
CPT/HCPCS: 81003; 87077; 87086; 87186; 99212; G0463